=== PATIENT | female | born 1985 ===

== ENCOUNTER → 2016-10-07 | Outpatient (CLI) | payer OTHER | END | disposition home or self-care (01) | LOC: C.LABSPEC 10:13 | PROVIDERS: ATTEND Physician Assistant | DX: N76.0 Acute vaginitis (principal) ==

== ENCOUNTER → 2017-01-28 | Outpatient (CLI) | payer OTHER ==
[2017-02-02 16:40] LABS: HSV TYPE 1 DNA Not Detected (Not Detected); HSV TYPE 2 DNA Not Detected (Not Detected)
== END | disposition home or self-care (01) ==
LOC: C.LABSPEC 17:26
PROVIDERS: ATTEND Obstetrics & Gynecology
DX: N76.6 Ulceration of vulva (principal)